=== PATIENT | male | born 2000 | race Caucasian/White ===

== ENCOUNTER 2020-04-24 20:24 | Emergency (ER) | payer OTHER ==
[~2020-04-24] VITALS: Ht 180.3 cm; Wt 74.4 kg
[2020-04-24 20:29] VITALS: Ht 180.3 cm; Wt 74.4 kg
[2020-04-24 22:14] VITALS: BP 116/71
== END 2020-04-24 22:14 | disposition home or self-care (01) ==
LOC: ED 20:24
DX: S43.004A Unspecified dislocation of right shoulder joint, initial encounter (principal); X58.XXXA Exposure to other specified factors, initial encounter; Y93.67 Activity, basketball; Y92.320 Baseball field as the place of occurrence of the external cause; Y99.8 Other external cause status
CPT/HCPCS: J3010